=== PATIENT | male | born 1985 | race Caucasian/White ===

== ENCOUNTER → 2018-02-09 | Outpatient (CLI) | payer BC ==
[~2018-02-09] MED LIST: ACET325T14 PO; ALBUTEROL PO; GABA300C10 PO; LEVO300T2 PO
[2018-02-09 09:47] LABS: ALANINE AMINOTRANSFERASE 37 U/L (12-78); ALBUMIN 3.8 g/dL (3.4-5.0); ANION GAP 4 mmol/L (5-15); CALCIUM 9.2 mg/dL (8.5-10.1); CHLORIDE 107 mmol/L (98-107); CREATININE 1.11 mg/dL (0.7-1.3)
[2018-02-09 09:49] LABS: ALKALINE PHOSPHATASE 66 U/L (45-117); TOTAL PROTEIN 6.8 g/dL (6.4-8.2)
[2018-02-09 09:50] LABS: BASOPHILS # (AUTO) 0.04 x10^3/uL (0-0.1); BASOPHILS % (AUTO) 1 % (0-1); EOSINOPHILS # (AUTO) 0.07 x10^3/uL (0-0.4); EOSINOPHILS % (AUTO) 1 % (1-7); LYMPHOCYTES # (AUTO) 1.36 x10^3/uL (1-3.4); LYMPHOCYTES % (AUTO) 25 % (22-44); MD NO; MEAN CORPUSCULAR HEMOGLOBIN 29.5 pg (27.5-34.5); MEAN CORPUSCULAR HGB CONC 33.5 g/dL (33.2-36.2); MEAN PLATELET VOLUME 8.4 fL (7.4-10.4); MONOCYTES # (AUTO) 0.45 x10^3/uL (0.2-0.8); MONOCYTES % (AUTO) 8 % (2-9); NEUTROPHILS # (AUTO) 3.45 x10^3/uL (1.8-6.8); NEUTROPHILS % (AUTO) 64 % (42-75); PLATELET COUNT 243 x10^3/uL (130-400); RED BLOOD COUNT 5.24 x10^6/uL (4.38-5.82); RED CELL DISTRIBUTION WIDTH 12.1 % (9.4-14.8)
== END | disposition home or self-care (01) ==
LOC: STAR 08:31
PROVIDERS: ATTEND Surgery
DX: Z01.818 Encounter for other preprocedural examination (principal); R00.1 Bradycardia, unspecified
CPT/HCPCS: 36415; 80053; 85025; 93005

== ENCOUNTER 2018-02-14 06:12 | Inpatient (IN) | payer BC ==
[~2018-02-14] VITALS: Ht 180.3 cm; Wt 86.0 kg
[2018-02-14] MEDS ORDERED: LACTATED RINGERS 1,000 ML IV SCH (06:42)
[2018-02-14] MEDS ORDERED: BUPIVACAINE/PF-EPI 0.5% 1:200K ONE (06:56)
[2018-02-14] MEDS ORDERED: LIDOCAINE-MPF 1%, 2ML INFIL ONE (07:00)
[2018-02-14] MEDS ORDERED: KETAMINE 10 MG/ML, 20ML ONE (07:04)
[2018-02-14] MEDS ORDERED: MIDAZOLAM 1 MG/ML, 2ML ONE ×2 (07:05→14:26)
[2018-02-14] MEDS ORDERED: FENTANYL PF 100 MCG/2ML ONE ×3 (07:05→14:39)
[2018-02-14] MEDS ORDERED: MEPERIDINE/PF 50 MG/ML ONE (07:05)
[2018-02-14] MEDS ORDERED: METOCLOPRAMIDE 5 MG/ML, 2ML ONE (07:06)
[2018-02-14] MEDS ORDERED: SUCCINYLCHOLINE 20 MG/ML, 10ML ONE (07:06)
[2018-02-14] MEDS ORDERED: CEFAZOLIN 1,000 MG ONE ×2 (07:06)
[2018-02-14] MEDS ORDERED: LIDOCAINE-MPF 2% ,5ML ONE (07:06)
[2018-02-14] MEDS ORDERED: ROCURONIUM 10MG/ML,5ML ONE (07:06)
[2018-02-14] MEDS ORDERED: PROPOFOL 10 MG/ML, 20ML ONE (07:06)
[2018-02-14] MEDS ORDERED: DEXAMETHASONE 4 MG/ML, 1ML ONE ×4 (07:06→14:01)
[2018-02-14] MEDS ORDERED: ONDANSETRON 2MG/ML, 2ML ONE ×3 (07:06→18:07)
[2018-02-14] MEDS ORDERED: EPHEDRINE 50 MG/ML, 1ML ONE (07:07)
[2018-02-14] MEDS ORDERED: PHENYLEPHRINE 10 MG/ML ONE (07:07)
[2018-02-14] MEDS ORDERED: SODIUM CHLORIDE 0.9% PF 10ML ONE (07:18)
[2018-02-14] MEDS ORDERED: LIDOCAINE GEL 2%, 5ML ONE (07:38)
[2018-02-14] MEDS ORDERED: ONDANSETRON 2MG/ML, 2ML IVPush PRN (14:30)
[2018-02-14] MEDS ORDERED: MIDAZOLAM 1 MG/ML, 2ML IV PRN (14:30)
[2018-02-14] MEDS ORDERED: LABETALOL 5MG/ML, 20ML IV PRN (14:30)
[2018-02-14] MEDS ORDERED: FENTANYL PF 100 MCG/2ML IV PRN (14:30)
[2018-02-14] MEDS ORDERED: OXYcodone 5 MG/5 ML ORAL.SOL UDC PO PRN (14:30)
[2018-02-14] MEDS ORDERED: MEPERIDINE/PF 25MG/0.5ML IVPush PRN (14:30)
[2018-02-14] MEDS ORDERED: OXYcodone 5 MG/5 ML ORAL.SOL UDC ONE (14:57)
[2018-02-14] MEDS ORDERED: HYDROmorphone 2 MG/ML, 1ML ONE (14:57)
[2018-02-14] MEDS: HYDROmorphone 1 MG/ML, 1ML IV PRN ×4 (15:00→15:34)
[2018-02-14] MEDS ORDERED: HYDROmorphone 2 MG/ML, 1ML IV PRN (15:46)
[2018-02-14] MEDS ORDERED: LABETALOL 5MG/ML, 20ML ONE (15:51)
[2018-02-14] MEDS ORDERED: PROMETHAZINE 25 MG/ML, 1ML ONE (18:03)
[2018-02-14] MEDS ORDERED: PROMETHAZINE 25 MG/ML, 1ML IV PRN (19:00)
[2018-02-14] MEDS ORDERED: PROMETHAZINE 25 MG/ML, 1ML IM PRN (19:00)
[2018-02-14] MEDS ORDERED: ACETAMINOPHEN 650 MG SUPP PR PRN (20:00)
[2018-02-14] MEDS ORDERED: hydrALAzine 20 MG/ML, 1ML IV PRN (20:00)
[2018-02-14] MEDS ORDERED: ONDANSETRON 2MG/ML, 2ML IV PRN (20:00)
[2018-02-14] MEDS ORDERED: ACETAMINOPHEN 325 MG TABLET PO PRN (20:00)
[2018-02-14 20:05] VITALS: BP 117/75
[2018-02-14 20:43] VITALS: BP 120/68
[2018-02-14] MEDS: CALCIUM/VITAMIN D3 250-125 TABLET PO SCH (21:00)
[2018-02-14 21:29] LABS: MEAN CORPUSCULAR HEMOGLOBIN 29.5 pg (27.5-34.5); MEAN CORPUSCULAR HGB CONC 33.6 g/dL (33.2-36.2); MEAN CORPUSCULAR VOLUME 87.8 fL (81-97); MEAN PLATELET VOLUME 8.3 fL (7.4-10.4); PLATELET COUNT 201 x10^3/uL (130-400); RED BLOOD COUNT 4.86 x10^6/uL (4.38-5.82)
[2018-02-14 21:39] LABS: MD YES
[2018-02-14 21:42] LABS: BANDS%(MANUAL) 2 % (0-7); LYMPHS% (MANUAL) 2 % (22-44); METAMYELOCYTES% (MANUAL) 2 % (0-1); MONOS#(MANUAL) 0.46 x10^3/uL (0.3-2.7); MONOS% (MANUAL) 3 % (2-9); REACTIVE LYMPHS % (MANUAL) 2 % (0-0); SEG#(MANUAL) 13.53 x10^3/uL (1.8-6.8); SEGS% (MANUAL) 89 % (42-75)
[2018-02-14 21:43] LABS: <PLATELET ESTIMATE> ADEQUATE; ANISOCYTOSIS 1+; LARGE PLATELETS 1+
[2018-02-14] MEDS: SODIUM CHLORIDE FLUSH 10ML SYR IVF SCH (22:48)
[2018-02-14] MEDS: POTASSIUM CHLORIDE 20 MEQ in D5%-0.45% NACL 1,000 ML IV SCH (22:48)
[2018-02-14] MEDS: KETOROLAC 30 MG/1 ML IV PRN (23:59)
[2018-02-15] MEDS: HEPARIN 25,000 UNITS/500ML PMX 500 ML IV PRN (00:10)
[2018-02-15 01:01] VITALS: BP 114/72
[2018-02-15] MEDS: KETOROLAC 30 MG/1 ML IV PRN ×3 (05:24→20:25)
[2018-02-15 07:13] VITALS: BP 116/71
[2018-02-15] MEDS ORDERED: HEPARIN 5,000 UNITS/ML, 1ML ONE (07:52)
[2018-02-15] MEDS: CALCIUM/VITAMIN D3 250-125 TABLET PO SCH ×3 (08:03→20:31)
[2018-02-15] MEDS: SODIUM CHLORIDE FLUSH 10ML SYR IVF SCH ×2 (08:06→20:32)
[2018-02-15 08:49] LABS: CALCIUM 8.6 mg/dL (8.5-10.1)
[2018-02-15] MEDS: POTASSIUM CHLORIDE 20 MEQ in D5%-0.45% NACL 1,000 ML IV SCH ×3 (08:59→19:12)
[2018-02-15 12:54] VITALS: BP 104/63
[2018-02-15 15:49] VITALS: BP 123/81
[2018-02-15] MEDS ORDERED: ACETAMINOPHEN 650 MG SUPP PR PRN (16:30)
[2018-02-15] MEDS ORDERED: GABAPENTIN MC SCH (16:30)
[2018-02-15] MEDS ORDERED: ALBUTEROL SULFATE 2.5 MG/3 ML HHN PRN (16:30)
[2018-02-15] MEDS ORDERED: KETOROLAC 30 MG/1 ML IV PRN (16:30)
[2018-02-15 20:23] VITALS: BP 121/79
[2018-02-16] MEDS: HEPARIN 25,000 UNITS/500ML PMX 500 ML IV PRN (00:19)
[2018-02-16 01:54] VITALS: BP 119/73
[2018-02-16] MEDS: POTASSIUM CHLORIDE 20 MEQ in D5%-0.45% NACL 1,000 ML IV SCH ×4 (02:36→22:13)
[2018-02-16] MEDS: KETOROLAC 30 MG/1 ML IV PRN ×4 (02:56→21:35)
[2018-02-16] MEDS: LEVOTHYROXINE 200 MCG TABLET PO SCH (05:50)
[2018-02-16] MEDS: LEVOTHYROXINE 125 MCG TABLET PO SCH (05:50)
[2018-02-16 07:27] VITALS: BP 124/75
[2018-02-16] MEDS ORDERED: LOVENOX/HEPARIN MC SCH (07:30)
[2018-02-16 07:41] LABS: FREE T4 (FREE THYROXINE) 2.56 ng/dL (0.76-1.46)
[2018-02-16 08:09] LABS: THYROID STIMULATING HORMONE < 0.005 mIU/L (0.358-3.740)
[2018-02-16 08:54] LABS: CREATININE 0.97 mg/dL (0.7-1.3)
[2018-02-16 09:05] LABS: INTERNATIONAL NORMALIZED RATIO 0.97 (0.93-1.1); PROTHROMBIN TIME 10.1 Seconds (9.6-11.5)
[2018-02-16] MEDS: CALCIUM/VITAMIN D3 250-125 TABLET PO SCH ×3 (09:06→21:35)
[2018-02-16] MEDS: SODIUM CHLORIDE FLUSH 10ML SYR IVF SCH ×2 (09:06→21:35)
[2018-02-16] MEDS: ENOXAPARIN 80 MG/0.8 ML SQ SCH ×2 (10:53→22:17)
[2018-02-16] MEDS: ONDANSETRON 2MG/ML, 2ML IV PRN (12:51)
[2018-02-16 12:59] VITALS: BP 121/73
[2018-02-16] MEDS: ACETAMINOPHEN 325 MG TABLET PO PRN (15:33)
[2018-02-16] MEDS ORDERED: WARFARIN 7.5 MG TABLET PO-COUM ONE (18:00)
[2018-02-16] MEDS ORDERED: WARFARIN MODERAT DOSE PROTOCOL XX PRN (18:00)
[2018-02-16 20:48] VITALS: BP 125/75
[2018-02-17 03:01] VITALS: BP 143/81
[2018-02-17] MEDS: LEVOTHYROXINE 125 MCG TABLET PO SCH (05:08)
[2018-02-17] MEDS: LEVOTHYROXINE 200 MCG TABLET PO SCH (05:08)
[2018-02-17 06:12] LABS: INTERNATIONAL NORMALIZED RATIO 1.18 (0.93-1.1); PROTHROMBIN TIME 12.2 Seconds (9.6-11.5)
[2018-02-17 06:53] VITALS: BP 137/81
[2018-02-17] MEDS: POTASSIUM CHLORIDE 20 MEQ in D5%-0.45% NACL 1,000 ML IV SCH (08:54)
[2018-02-17] MEDS: ENOXAPARIN 80 MG/0.8 ML SQ SCH (09:50)
[2018-02-17] MEDS: ONDANSETRON 2MG/ML, 2ML IV PRN (09:50)
[2018-02-17] MEDS: CALCIUM/VITAMIN D3 250-125 TABLET PO SCH ×2 (09:51→14:14)
[2018-02-17] MEDS: SODIUM CHLORIDE FLUSH 10ML SYR IVF SCH (09:51)
[2018-02-17] MEDS: ACETAMINOPHEN 325 MG TABLET PO PRN (12:30)
[2018-02-17 13:58] VITALS: BP 119/73
[2018-02-17] MEDS ORDERED: WARFARIN 7.5 MG TABLET PO-COUM ONE (18:00)
[2018-02-17] MEDS ORDERED: LEVO300T2 PO (19:41)
[2018-02-17] MEDS ORDERED: LEVO25TA2 PO (19:41)
== END 2018-02-17 16:58 | disposition home or self-care (01) | DRG 821 ==
LOC: ORIP 06:12 → 4EST 19:25 → 4NOR 02-15 15:37
PROVIDERS: ADMIT Surgery; ATTEND Surgery
PROC: 07T10ZZ Resection of Right Neck Lymphatic, Open Approach (ICD-10-PCS; 2018-02-14)
PROC: 07T20ZZ Resection of Left Neck Lymphatic, Open Approach (ICD-10-PCS; principal; 2018-02-14 07:30)
DX: C77.9 Secondary and unspecified malignant neoplasm of lymph node, unspecified (principal); I82.C12 Acute embolism and thrombosis of left internal jugular vein; C73 Malignant neoplasm of thyroid gland; Z80.9 Family history of malignant neoplasm, unspecified
CPT/HCPCS: 36415; 71045; 74230; 82310; 82565; 83970; 84439; 84443; 85025; 85520; 85610; 86850; 86900; 88305; 93970; J0690; J1100; J1170; J1644; J1650; J1885; J2175; J2250; J2405; J2550; J2704; J3010; J3480; J3490; C1760; J0330; J2370; J2765; J7120

== ENCOUNTER 2018-02-17 18:51 | Emergency (ER) | payer BC ==
[~2018-02-17] VITALS: Ht 180.3 cm; Wt 82.0 kg
[2018-02-17 19:24] LABS: BASOPHILS # (AUTO) 0.05 x10^3/uL (0-0.1); BASOPHILS % (AUTO) 1 % (0-1); EOSINOPHILS # (AUTO) 0.06 x10^3/uL (0-0.4); EOSINOPHILS % (AUTO) 1 % (1-7); LYMPHOCYTES # (AUTO) 1.37 x10^3/uL (1-3.4); LYMPHOCYTES % (AUTO) 22 % (22-44); MD NO; MEAN CORPUSCULAR HGB CONC 33.9 g/dL (33.2-36.2); MEAN CORPUSCULAR VOLUME 88.4 fL (81-97); MEAN PLATELET VOLUME 8.3 fL (7.4-10.4); MONOCYTES # (AUTO) 0.63 x10^3/uL (0.2-0.8); MONOCYTES % (AUTO) 10 % (2-9); NEUTROPHILS % (AUTO) 67 % (42-75); PLATELET COUNT 189 x10^3/uL (130-400)
[2018-02-17] MEDS ORDERED: SODIUM CHLORIDE FLUSH 10ML SYR IVF ONE (19:30)
[2018-02-17 19:33] LABS: ALBUMIN 3.3 g/dL (3.4-5.0); ANION GAP 6 mmol/L (5-15); CALCIUM 9.3 mg/dL (8.5-10.1); CHLORIDE 102 mmol/L (98-107); CREATININE 1.12 mg/dL (0.7-1.3)
[2018-02-17] MEDS ORDERED: LEVO25TA2 PO (19:41)
[2018-02-17] MEDS ORDERED: LEVO300T2 PO (19:41)
[2018-02-17] MEDS ORDERED: MORPHINE SULFATE 4 MG/ML, 1ML IVPush PRN (21:00)
[2018-02-17] MEDS ORDERED: ONDANSETRON 2MG/ML, 2ML IVPush ONE (21:00)
[2018-02-17] MEDS ORDERED: ONDANSETRON 2MG/ML, 2ML ONE (21:10)
[2018-02-17] MEDS ORDERED: MORPHINE SULFATE 4 MG/ML, 1ML ONE (21:10)
[2018-02-17 21:28] VITALS: BP 115/66
== END 2018-02-17 22:16 | disposition home or self-care (01) ==
LOC: ED 21:51
DX: R07.0 Pain in throat (principal); L76.82 Other postprocedural complications of skin and subcutaneous tissue; M54.2 Cervicalgia; R50.9 Fever, unspecified; R51 Headache; R53.1 Weakness; Z85.850 Personal history of malignant neoplasm of thyroid; Z87.891 Personal history of nicotine dependence
CPT/HCPCS: 36415; 80048; 82040; 84439; 84443; 84481; 85025; 96374; 96375; 99284; J2405